=== PATIENT | male | born 1995 | race Caucasian/White ===

== ENCOUNTER 2018-07-16 16:39 | Emergency (ER) | payer OTHER ==
[2018-07-16 16:44] VITALS: BP 142/69
--- NOTE | 2018-07-16 16:52 | ED Physician Documentation ---
PD HPI TRUNK INJURY - Stated complaint Stated Complaint: R SIDE RIB PX - Chief complaint Chief Complaint: Resp - History obtained from History obtained from: Patient - History of Present Illness Location: Anterior chest, Right chest Type of injury: Blunt / blow Timing - onset: How many minutes ago (45) Quality: Pain Worsened by: Moving, Palpating, Other (Respiratory inspiration.) Where injury occured: Other (Basketball court.) Similar symptoms before: Has not had sx before - Additional information Additional information: The patient is an otherwise healthy 22-year-old male presents with right lower anterior chest pain. He was playing basketball about 45 minutes prior to arrival when he was elbowed in the chest. The pain is worse with respiratory inspiration. He denies shortness of breath, abdominal pain, or other injuries. Review of Systems Constitutional: denies: Fever Cardiac: reports: Chest pain / pressure Respiratory: denies: Dyspnea, Cough GI: denies: Abdominal Pain, Nausea, Vomiting Skin: denies: Abrasion (s), Laceration (s) Musculoskeletal: denies: Neck pain, Back pain, Extremity pain Neurologic: denies: Focal weakness, Numbness PD PAST MEDICAL HISTORY - Past Medical History Respiratory: None Endocrine/Autoimmune: None - Present Medications Home Medications: Ambulatory Orders Medication Instructions Recorded Confirmed No Known Home Medications [No 07/16/18 07/16/18 Known Home Medications] - Allergies Allergies/Adverse Reactions: Allergies Allergy/AdvReac Type Severity Reaction Status Date / Time No Known Drug Allergies Allergy Verified 07/16/18 16:44 PD ED PE NORMAL - Vitals Vital signs reviewed: Yes (Systolic hypertension initially.) - General General: Alert and oriented X 3 - HEENT HEENT: Atraumatic - Neck Neck: No bony TTP - Cardiac Cardiac: RRR - Respiratory Respiratory: No respiratory distress, Clear bilaterally, Other (Tenderness to palpation over the right lower anterior chest wall in the anterior axillary line. There is no bony step-off palpated.) - Abdomen Abdomen: Soft, Non tender - Back Back: No spinal TTP - Derm Derm: No rash - Extremities Extremities: Normal ROM s pain - Neuro Neuro: Alert and oriented X 3, No motor deficit, Normal speech Results - Vitals Vitals: Vital Signs - 24 hr 07/16/18 16:41 Temperature 36.7 C Heart Rate 92 Respiratory 16 Rate Blood Pressure 142/69 H O2 Saturation 98 Oxygen O2 Source Room air - Rads (name of study) Right ribs with PA chest Radiology: Prelim report reviewed, EMP read contemporaneously, See rad report ( Hairline fracture anterior aspect right 6th rib.) PD MEDICAL DECISION MAKING - ED course Complexity details: reviewed results, re-evaluated patient, considered differential, d/w patient ED course: The patient's presentation is most consistent with contusion to the right chest wall with hairline fracture of right 6th rib seen on chest x-ray with rib detail. Treatment in the emergency department and included administration of ibuprofen 800 mg orally. I discussed with him the expected course of injury, symptomatic treatment and outpatient follow-up, as well as potentially worrisome signs or symptoms that should prompt reevaluation in the emergency department. - Sepsis Event Vital Signs: Vital Signs - 24 hr 07/16/18 16:41 Temperature 36.7 C Heart Rate 92 Respiratory 16 Rate Blood Pressure 142/69 H O2 Saturation 98 Oxygen O2 Source Room air Departure - Departure Disposition: 01 Home, Self Care Clinical Impression: Closed rib fracture Qualifiers: Encounter type: initial encounter Rib fracture type: single rib Laterality: right Qualified Code(s): S22.31XA - Fracture of one rib, right side, initial encounter for closed fracture Condition: Stable Instructions: ED Fx Rib Follow-Up: VETO BOLANOS [Primary Care Provider] - Comments: Apply ice pack to the sore areas intermittently for the next 3 days. You can use ibuprofen, up to 800 mg 3 times daily. Let pain be your guide to activity level. Follow up with your primary physician within 1-2 weeks. Call to schedule appointment. Return to the emergency department if you develop increasing difficulty breathing, or otherwise worsening symptoms. Forms: Activity restrictions Discharge Date/Time: 07/16/18 17:33
[2018-07-16] MEDS ORDERED: IBUPROFEN 800 MG TABLET PO STA (17:13)
--- NOTE | 2018-07-16 17:42 | XRAY Report ---
Reason: right lower, anterior chest injury, with rib pain Procedure Date: 07/16/2018 Accession Number: [id number] / [id number] Procedure: XR - Ribs w/PA Chest RT CPT Code: FULL RESULT: EXAM: RIGHT RIB RADIOGRAPHY EXAM DATE: 07/16/2018 05:04 PM. CLINICAL HISTORY: Injury while playing basketball. Right lower anterior chest injury with rib pain. COMPARISON: None. TECHNIQUE: 1 view of the chest and 2 views of the ribs. FINDINGS: Bones: A marker was placed in the area of concern. This corresponds to the anterior aspects of the right sixth and seventh ribs. Very small amount of pleural thickening subjacent to the anterior aspect of the right sixth rib. Hairline fracture at this point. Lungs: No focal opacities. No pneumothorax. No pleural effusions. Mediastinum: Heart and mediastinal contours are unremarkable. Other: None. IMPRESSION: Hairline fracture anterior aspect right sixth rib. [facility]
== END 2018-07-16 17:33 | disposition home or self-care (01) ==
LOC: ED 16:39
DX: S22.31XA Fracture of one rib, right side, initial encounter for closed fracture (principal); W51.XXXA Accidental striking against or bumped into by another person, initial encounter; Y93.67 Activity, basketball
CPT/HCPCS: 71101; 99282; 99283; A9270